=== PATIENT | female | born 1960 | race Caucasian/White ===

== ENCOUNTER 2016-11-28 12:57 | Emergency (ER) | payer OTHER ==
[~2016-11-28 12:57] MED LIST: Iopamidol 370 76% 100 ML VIAL ONE; Sodium Chloride 0.9% 1,000 ML BAG ONE
[2016-11-28 14:16] LABS: ALT (SGPT) 41 U/L (0-55); AST (SGOT) 24 U/L (5-34); Albumin 4.3 g/dL (3.5-5.0); Alkaline Phosphatase 62 U/L (40-150); Anion Gap 16 mmol/L (10-20); BUN (Urea Nitrogen) 9 mg/dL (9.8-20.1); Bilirubin, Total 0.9 mg/dL (0.2-1.2); Calc. Creatinine Clearance 0 mL/min (70-130); Calcium 9.1 mg/dL (7.8-10.44); Carbon Dioxide 24 mmol/L (22-29); Chloride 101 mmol/L (98-107); Estimated GFR-MDRD 76; Globulin 2.7 g/dL (2.4-3.5); Glucose 110 mg/dL (70-105); Lipase 9 U/L (8-78); Potassium 3.7 mmol/L (3.5-5.1); Sodium 137 mmol/L (136-145)
[2016-11-28 14:19] LABS: CKMB 0.4 ng/mL (0-6.6); Troponin I Less than 0.010 ng/mL (< 0.028)
[2016-11-28 14:30] LABS: Band 3 % (5-11); Hemoglobin 13.7 g/dL (12.0-16.0); Lymphocytes 8 % (21-51); MDiff Complete? YES; Mean Corpuscular HGB CONC 34.1 g/dL (32.0-36.0); Mean Corpuscular Hemoglobin 30.8 pg (27.0-31.0); Mean Corpuscular Volume 90.4 fl (81.0-99.0); Mean Platelet Volume 8.4 fL (7.4-10.4); Monocytes 4 % (0-10); Neutrophil 85 % (42-75); PLT Morphology Comment Appears Adequate; Platelet Count 263 thou/uL (130-400); RBC Distribution Width 12.6 % (11.5-14.5); Red Blood Cell (RBC) Count 4.46 mill/uL (4.20-5.40); White Blood Cell (WBC) Count 15.5 thou/uL (4.8-10.8)
[2016-11-28 14:39] LABS: Bilirubin Negative (Negative); Blood, Urine Small (Negative); Clarity Clear (Clear); Glucose, Urine (Dipstick) Negative (Negative); Leukocyte Negative (Negative); Nitrite Negative (Negative); Protein, Urine (Dipstick) Negative (Neg-Trace); Specific Gravity, Urine 1.015 (1.005-1.030); Urobilinogen 0.2 mg/dL (0.2-1.0); pH, Urine 7.5 (5.0-9.0)
[2016-11-28 14:45] LABS: Bacteria/HPF None Seen HPF (None Seen); Squamous Epithelial 0-3 HPF (0-3); WBC/HPF 0-3 HPF (0-3)
[2016-11-28] MEDS ORDERED: Levofloxacin 500 mg/D5W 100 ml Premix Bag ONE (15:34)
[2016-11-28] MEDS ORDERED: Ondansetron HCl/PF 4 MG/2 ML Vial ONE (17:40)
[2016-11-28] MEDS ORDERED: Ketorolac Tromethamine 30 MG/ML VIAL ONE (18:07)
--- NOTE | 2016-11-28 18:47 | CT ---
ABDOMEN AND PELVIC CT SCAN WITH IV CONTRAST: 11/28/16 HISTORY: 56-year-old female with left lower quadrant pain and concern for diverticulitis. The patient vomited at the start of the examination and re-examination resulted in consider contrast excretion within t he renal collecting systems and ureters and bladder. COMPARISON: 02/11/15. FINDINGS: Hepatomegaly with marked fatty changes with prominent focal area of sparing adjacent to the gallblad lázaro. No ductal dilatation. Pancreas and spleen are unremarkable. There is minimal nodular fullness o f the left adrenal gland probably some hyperplasia. Small bilateral renal cysts. Nonobstructing danielle l calculi cannot be excluded but there is no evidence for acute obstruction. Normal appearing tom endix. Bilateral pars defects at L5-S1 with some minimal anterolisthesis with generalized lumbar spo ndylosis. IMPRESSION: Marked fatty changes of the liver with some fatty sparing adjacent to the gallbladder, stable. Small bilateral renal cysts. No obstructing calculus. No evidence for acute diverticulitis or abscess. Normal appearing appendix. Other findings as above. POS: [facility]
== END 2016-11-28 19:15 | disposition home or self-care (01) ==
LOC: MADERS 12:57
DX: R55 Syncope and collapse (principal); E78.5 Hyperlipidemia, unspecified; E78.00 Pure hypercholesterolemia, unspecified; F17.210 Nicotine dependence, cigarettes, uncomplicated
CPT/HCPCS: 74177; 80053; 81003; 81015; 82553; 83690; 84484; 85025; 85379; 93005; 96361; 96365; 96375; J1885; J1956; J2405; J7050